=== PATIENT | female | born 1955 | race Caucasian/White ===

== ENCOUNTER 2019-11-06 12:59 | Emergency (ER) | payer BC ==
[~2019-11-06] VITALS: Ht 167.6 cm; Wt 68.0 kg
[2019-11-06 13:08] VITALS: BP 133/53
[2019-11-06 13:29] VITALS: BP 133/53
== END 2019-11-06 13:29 | disposition home or self-care (01) ==
LOC: MED 12:59
DX: S90.521A Blister (nonthermal), right ankle, initial encounter (principal); Z48.00 Encounter for change or removal of nonsurgical wound dressing; X58.XXXA Exposure to other specified factors, initial encounter; Y93.89 Activity, other specified; Y92.89 Other specified places as the place of occurrence of the external cause; Y99.8 Other external cause status
CPT/HCPCS: 99283